=== PATIENT | female | born 1965 | race Caucasian/White ===

== ENCOUNTER 2016-12-16 16:52 | Inpatient (IN) | payer BC, MEDICARE ==
--- NOTE | ~2016-12-16 | PN ---
Unit #: [id number] #: [id number] Patient: CONNOR NELSON [id number] [facility] [address] [place] [address] [id number] MR#: [id number] NAME: CONNOR NELSON ROOM: [facility] Age: 51 Sex: F Admission Date: 12/16/2016 : 1965 Attending Physician: Fan Bueno M.D. Admitting Physician: Fan Bueno M.D. Primary Care Physician: Kings Diaz PROGRESS NOTES DATE 12/19/2016 DISCUSSION Ms. Yang is a 51-year-old female seen on 12/19/2016. The patient interviewed, chart reviewed. Obtained information from nursing staff. The patient compliant and cooperative. Mood sad, dysphoric, flat affect, guarded. The patient's vital signs stable 98.7, 95, 20, 139/92. The patient report her mood is getting better. Tolerating medication fairly well. Sleeping good, isolative. The patient denied any other complaints. Complete review of systems unremarkable. MENTAL STATUS EXAMINATION General appearance, the patient dressed casually. Attention span and concentration fair. Oriented to time, place and person. Mood and affect sad, depressed. Speech monotone. Thought process concrete. The patient denied any thoughts of harming self or others but passive SI, guarded. Recent and remote memory poor. Insight and judgement poor. DIAGNOSES Major depressive disorder recurrent severe. ASSESSMENT/PLAN Advise to continue with current medication with a plan to check lithium level on Tuesday. If needed consider further adjustment of medication. Dictated by... Kings Zamora/demetrio TD: 12/20/2016 13:32 JOB #: [id number] Unit #: [id number] #: [id number] Patient: CONNOR NELSON PROGRESS NOTES Page 1 of 1 X Fan Bueno MD PROGRESS NOTE
--- NOTE | ~2016-12-16 | A ---
[facility] DATE: 12/17/16 Patient: CONNOR NELSON Physician: LIDA Address: [address] [place] [address] Room/Bed: [address], Zip: [place] [address] Admit Date: 12/16/16 Date of : [birth year] Height: 5 0 Weight: [phone] NUTRITIONAL ASSESSMENT: REASON: Consult re: severe IBS/diverticulosis EGG ALLERGY Admitting Dx: 51 y/o female admitted with SI and depression PMH: No H&P currently available, information is obtained from the needs assessment and the patient herself: IBS, diverticulosis, dyspepsia, GERD, HTN, eating disorder/purging, asthma, thryoid issues, suicide attempts Anthropometrics: Ht: 60", Wt: 163 lbs, BMI: 31 (Stage I obese) Labs: Reviewed; WNL Meds: [place] carbonate, Mag-Al, Milk of Mg, Buspar Assessment: Chart reviewed, events noted. See admitting dx and PMH as stated above. RD consulted to address the patient's specific dietary needs, as she has severe IBS. She is Stage I obese, no past weights available for comparison and scored 0 points on the malnutrition risk screen, however per the needs assessment she has lost 30 lbs in 6 months and has a history of purging. She is currently on a regular diet however nursing states she follows a low FODMAP diet at home, which usually entails avoiding gluten, dairy products, and certain fruits/vegetables to help with IBS symptoms. Research generally supports this diet. RD spoke with the patient and obtained her specific dietary needs, which is reported below. Of note, she has an egg allergy. Nursing states she can have products with eggs in them, just can't have eggs by themselves. I informed nursing due ot this allergy she will not receive any egg products. Patient is requesting a dairy-free diet and the following modifications below. Dx: Altered GI function r/t PMH AEB severe IBS, dietary modifications, RD consult. Intervention: Dairy free diet Monitoring, Evaluation and Goals: 1. Adequate oral intake > 50% of meals. 2. Prevent/correct micro/macro nutrient deficiencies. 3. Promote regular GI function. Monitor: Per consult [facility] DATE: 12/17/16 Patient: CONNOR NELSON Physician: LIDA Address: [address] [place] [address] Room/Bed: [address], Zip: [place] [address] Admit Date: 12/16/16 Date of : [birth year] Height: 5 0 Weight: [phone] Recommendations: 1. RD wrote in chart to change diet order to no dairy, per patient request. She does not want any cow's milk substitutions such as lactose-free or soy milk. She can have the following fruits: Any EXCEPT apples, pears and peaches She can have the following vegetables: Any EXCEPT iceberg lettuce (please give spinach) and peas She can have any meats/protein EXCEPT hamburger meat She DOES eat wheat and can have any wheat products including regular bread, chips, etc. 2. SHE HAS AN EGG ALLERGY Food and nutrition services staff have been notified of the patient's dietary needs and have been added to her cardex. 3. Please consult dietitian or call [phone] ([phone] from inside [place]) with any further nutritional needs. Mild nutrition risk Respectfully, Annamarie Adan RD, [facility] cc: client file
--- NOTE | ~2016-12-16 | PN ---
Unit #: [id number] #: [id number] Patient: CELIA NELSON [id number] [facility] [address] [place] [address] [id number] I MR#: [id number] NAME: CELIA NELSON ROOM: [facility] Age: 51 Sex: F Admission Date: 12/16/2016 : 1965 Attending Physician: Fan Bueno M.D. Admitting Physician: Fan Bueno M.D. Primary Care Physician: Kings Diaz PROGRESS NOTES DATE OF SERVICE: 12/17/2016 DISCUSSION Ms. Celia Latif is a 51-year-old female, seen on 12/17/2016. The patient interviewed, chart reviewed, and obtained information from nursing staff. The patient compliant and cooperative. Mood is sad and dysphoric. Flat affect and guarded. The patient still having suicidal ideation. Flat, sad, and dysphoric mood. REVIEW OF SYSTEMS Complete review of systems unremarkable. MENTAL STATUS EXAMINATION General appearance, the patient dressed casually. Attention span and concentration, fair. Oriented in place and person. Mood and affect, sad and depressed. Speech, monotone. Thought process, concrete. Denied any homicidal ideation, but passive SI. Sad, depressed, and guarded. Recent and remote memory, poor. Insight and judgment, poor. DIAGNOSES Major depressive disorder, recurrent, severe. ASSESSMENT AND PLAN Advised to continue with current medication and therapeutic protocol. If needed, consider further adjustment of medication. Dictated by... Kings Zamora/duarte TD: 12/17/2016 16:13 JOB #: [id number] Unit #: [id number] #: [id number] Patient: CELIA NELSON PROGRESS NOTES Page 1 of 1 X Fan Bueno MD PROGRESS NOTE
--- NOTE | ~2016-12-16 | PA ---
Unit #: [id number] #: [id number] Patient: CONNOR NELSON [id number] [facility] [address] [place] [address] [id number] MR#: [id number] NAME: CONNOR NELSON ROOM: [facility] Age: 51 Sex: F Admission Date: 12/16/2016 : 1965 Date of Assessment: Attending Physician: Fan Bueno M.D. Admitting Physician: Fan Bueno M.D. Primary Care Physician: Shashank Hammond M.D. PSYCHIATRIC ASSESSMENT INFORMANTS The patient reliability, fair informant; chart reliability, good. CHIEF COMPLAINT Depression, suicidal ideation. HISTORY OF PRESENT ILLNESS Ms. Yang is a 51-year-old female, admitted with the above-mentioned complaint. The patient reports that she lives with her , has a good support system, feeling increasingly depressed. The patient reported suffering from depression since age 18, multiple admissions at [facility] and [facility]; history of previous suicide attempt, having suicidal ideation. The patient reports current medications are not working. The patient reports that for some time new medication worked for her. The patient has one son. The patient reports good support from family. The patient denied any psychotic symptom or any homicidal ideation. Denied any use of any drugs or alcohol. The patient has a history of overdose in the past, serious suicide attempt requiring ICU care for about 5 days. The patient denied any homicidal ideation. Needing inpatient admission at this time for psychiatric stabilization. PAST PSYCHIATRIC HISTORY Remarkable for history of previous treatment at inpatient at [facility] in 03/2012, multiple admissions at [facility] for suicidal ideation, inpatient at [facility]. FAMILY HISTORY AND SOCIAL HISTORY The patient has a good support system. No history of any abuse. Reported history of depression runs in the family. MEDICAL HISTORY Remarkable for history of hypertension, asthma, eating disorder, thyroid issues. MEDICATION HISTORY The patient is on Rexulti, Viibryd, Restoril, Singulair, Zestril, Mobic, Protonix, Claritin, Fetzima, Synthroid, Requip, Symbicort, BuSpar, Bells, Proventil inhaler, Lomotil, Valtrex. ALLERGIES No known drug allergies. SUBSTANCE ABUSE HISTORY Unit #: [id number] #: [id number] Patient: CONNOR NELSON None. REVIEW OF SYSTEMS HEENT: Eyes, clear. Ears, nose, mouth, and throat; clear. CARDIOVASCULAR: Unremarkable. RESPIRATORY: Unremarkable. GI: Unremarkable. : Unremarkable. SKIN: Unremarkable. LYMPH NODE: Unremarkable. NEUROLOGIC: Unremarkable. ENDOCRINE: Unremarkable. HEMATOLOGIC: Unremarkable. ALLERGIC/IMMUNOLOGIC: Unremarkable. MUSCULOSKELETAL: Muscle strength and tone, no atrophy or abnormal movement. Gait normal. MENTAL STATUS EXAMINATION CONSTITUTIONAL: Measurement of vital signs; temperature is 98.6, pulse 88, respiratory rate 19, blood pressure 139/97, height 5 feet, weight 163 pounds. GENERAL APPEARANCE: The patient dressed casually. The patient did not show any facial deformity. MUSCULOSKELETAL: Please see above. PSYCHIATRIC EXAMINATION Description of speech; regular rate, normal volume, normal articulation, coherent. Description of thought process, goal directed. Description of association, intact. Description of abnormal psychotic thinking; the patient denied any hallucination or delusions, but sad, depressed, suicidal ideation. Description of the patient's judgment, concerning everyday activity, poor. Social situation, poor. Concerning psychiatric condition, poor. Complete mental status examination; oriented in time, place, and person. Recent and remote memory, fair. Attention span and concentration, fair. Language, able to name object and repeat phrases. Fund of knowledge, aware of current event and passive vocabulary intact. Mood and affect, sad and dysphoric. Insight and judgment, fair to poor. ASSETS AND LIABILITIES Assets; the patient is articulate and able to take care of her ADL. Liability, history of depression. ADMITTING DIAGNOSES Psychiatric: Major depressive disorder, recurrent, severe, F33.2; anxiety disorder, not otherwise specified, F41.9. Secondary diagnosis: Deferred. Medical diagnosis: History of hypertension, asthma, eating disorder, thyroid issues. Stressors: Psychosocial stressors. PSYCHIATRIC PLAN 1. Advised to admit the patient on the inpatient unit. Provide safe, supportive, and structured environment. Unit #: [id number] #: [id number] Patient: CONNOR NELSON 2. Ordered labs; CBC, CMP, UA, and UDS. 3. Precaution for self-harm. 4. The patient to continue with current medication with a plan to discontinue the patient's antidepressant Rexulti, Viibryd, and Restoril and replace that with Cymbalta 30 mg daily, lithium carbonate 300 mg b.i.d., doxepin 50 mg at bedtime, and Ativan 0.5 mg t.i.d. Medical consultation to evaluate the patient's medical condition. The patient to attend all the programing group therapy, individual therapy, family session. TREATMENT GOAL To attain euthymic mood, gain insight into her problem, and learn coping skills. DISCHARGE PLAN Plan to stabilize the patient and consider followup in outpatient program. ESTIMATED LENGTH OF STAY 2 weeks. Dictated by... Kings Zmaora/duarte TD: 12/18/2016 00:07 JOB #: [id number] PSYCHIATRIC ASSESSMENT Page 1 of 1 X Fan Bueno MD X PSYCHIATRIC ASSESSMENT
--- NOTE | ~2016-12-16 | PN ---
Unit #: [id number] #: [id number] Patient: CONNOR NELSON [id number] [facility] [address] [place] [address] [id number] MR#: [id number] NAME: CONNOR NELSON ROOM: [facility] Age: 51 Sex: F Admission Date: 12/16/2016 : 1965 Attending Physician: Fan Bueno M.D. Admitting Physician: Fan Bueno M.D. Primary Care Physician: Kings Diaz PROGRESS NOTES DATE 12/20/2016 DISCUSSION Ms. Yang is a 51-year-old female seen on 12/20/2016. The patient interviewed, chart reviewed. Obtained information from nursing staff. The patient reported that she is feeling better decreased anxiety. Hygiene and grooming good, pleasant and cooperative, make good eye contact. Vital signs stable. Complete review of systems unremarkable. MENTAL STATUS EXAMINATION General appearance, the patient neatly. Hygiene and grooming fair. Attention span and concentration fair. Oriented to time, place and person. Mood and affect sad, dysphoric. Speech monotone. Thought process concrete. The patient denied any thoughts of harming self or others but guarded. Recent and remote memory fair to poor. Insight and judgement fair to poor. DIAGNOSES Major depressive disorder recurrent severe ASSESSMENT/PLAN Advise to continue with current medication with a plan to consider discharge this week. Plan to check lithium level tomorrow. Dictated by... Kings Zamora/demetrio TD: 12/21/2016 23:30 JOB #: [id number] Unit #: [id number] #: [id number] Patient: CONNOR NELSON PROGRESS NOTES Page 1 of 1 X Fan Bueno MD X PROGRESS NOTE
--- NOTE | ~2016-12-16 | PN ---
Unit #: [id number] #: [id number] Patient: CONNOR NELSON [id number] [facility] [address] [place] [address] [id number] MR#: [id number] NAME: CONNOR NELSON ROOM: [facility] Age: 51 Sex: F Admission Date: 12/16/2016 : 1965 Attending Physician: Fan Bueno M.D. Admitting Physician: Fan Bueno M.D. Primary Care Physician: Kings Diaz PROGRESS NOTES DATE OF SERVICE: 12/18/2016 DISCUSSION Ms. Yang is a 51-year-old female. The patient interviewed, chart reviewed, and obtained information from nursing staff. The patient compliant, cooperative. Mood is sad, dysphoric, flat affect. The patient reports medication is helping her, but still reporting feeling sad, depressed, slept good. Compliant with medication. REVIEW OF SYSTEMS Complete review of systems unremarkable. MENTAL STATUS EXAMINATION General appearance, the patient dressed casually. Attention span and concentration, fair. Oriented in place and person. Mood and affect, sad, depressed, flat, suicidal ideation. Recent and remote memory, poor. Insight and judgment, poor. DIAGNOSIS Major depressive disorder, recurrent. ASSESSMENT AND PLAN Advised to continue with current medication and therapeutic protocol. If needed, consider further adjustment of medication. Dictated by... Kings Zamora/duarte TD: 12/18/2016 13:52 JOB #: [id number] Unit #: [id number] #: [id number] Patient: CONNOR NELSON PROGRESS NOTES Page 1 of 1 X Fan Bueno MD PROGRESS NOTE
--- NOTE | ~2016-12-16 | HP ---
Unit #: [id number] #: [id number] Patient: CELIA NELSON [id number] [place] [address] [id number] MR#: [id number] NAME: CELIA NELSON ROOM: [facility] Age: 51 Sex: F Admission Date: 12/16/2016 : 1965 Attending Physician: Fan Bueno M.D. Admitting Physician: Fan Bueno M.D. Primary Care Physician: Shashank Hammond M.D. HISTORY AND PHYSICAL HISTORY OF PRESENT ILLNESS Celia is a 51 year old admitted to [facility] with depression verbalizing wanting to hurt herself. PAST MEDICAL HISTORY 1. History of histoplasmosis 2. High blood pressure 3. History of migraine headaches 4. Hypothyroidism 5. History of fever blisters 6. Asthma 7. Irritable bowel syndrome a. diarrhea PAST SURGICAL HISTORY 1. Cholecystectomy 2. D & C 3. Bilateral ganglion cyst resected ALLERGIES Gracie Jose. SOCIAL HISTORY She does not smoke, drinks alcohol socially. Denies illicit drug use. FAMILY HISTORY Medically noncontributory. REVIEW OF SYSTEMS CONSTITUTIONAL: No fever or chills. HEENT: Denies any sore throat, ear pain or runny nose. CARDIOVASCULAR: Denies chest pain, irregular heart rhythm or palpitations. CHEST: Denies shortness of breath or cough. No hemoptysis. GASTROINTESTINAL: Denies nausea, vomiting, diarrhea or chronic constipation. ENDOCRINE: Denies history of increased thirst or urination. No recent significant weight loss or gain. GENITOURINARY: Denies dysuria, frequency, or hematuria. SKIN: Denies any rashes. HEMATOLOGIC: Denies history of increased bleeding or bruising. MUSCULOSKELETAL: Denies any hot, swollen joints. No generalized muscle pain. Unit #: [id number] #: [id number] Patient: CELIA NELSON NEUROLOGIC: Denies problems with vision or speech. No frequent, severe headaches. No numbness, tingling or weakness in any extremities. Denies loss of bladder or bowel control. CURRENT MEDICATIONS 1. Singulair 10 mg q day 2. Zestril 10 mg q day 3. Mobic 15 mg q day 4. Protonix 40 mg q day 5. Claritin 10 mg q day 6. Fetzima 80 mg q day 7. Synthroid 0.025 mg q day 8. Ropinirole 1 mg q.h.s. 9. Doxepin 50 mg q.h.s. 10. Cymbalta 30 mg q.h.s. 11. Symbicort b.i.d. 12. BuSpar 10 mg b.i.d. 13. [place] 300 mg b.i.d. 14. Ativan 0.5 mg b.i.d. 15. [place] 10/325 1 tab q.6 hours p.r.n. 16. Levsin 0.125 mg q 4 hours p.r.n. 17. Protonix 40 mg q day 18. Proventil inhaler p.r.n. 19. Valtrex 2000 mg b.i.d. p.r.n. PHYSICAL EXAMINATION GENERAL: Alert, well-nourished, in no apparent distress. VITAL SIGNS: Blood pressure 140/96, heart rate 88, respirations 16, temperature 98.6. WEIGHT: 163 pounds. HEIGHT: 5'0". SKIN: Warm and dry without rash or lesion. HEENT: Normocephalic. TMs not viewed. Oral and nasal passages clear. Conjunctivae clear. Pupils equal, round and reactive to light and accommodation. Extraocular movements intact. NECK: Supple without lymphadenopathy or thyromegaly. HEART: Regular rate and rhythm without murmur. LUNGS: Clear. ABDOMEN: Soft, nontender. : Not done. EXTREMITIES: No evidence of cyanosis, clubbing or edema. Moves all extremities without focal deficit. NEUROLOGICAL: Grossly within normal limits. Cranial Nerves: II: Visual tapia are intact. III, IV AND : Extraocular movements are intact. Pupils are equal, round and reactive to light. V: Facial sensation is grossly normal. VII: Facial movements and expression are normal. VIII: Auditory acuity grossly intact. IX, X: Uvula is midline. Phonation is normal. XI: Patient shrugs shoulders and turns head normally. XII: Tongue protrudes in the midline. Sensory and Motor Function: Sensory and motor sensation is grossly normal. Motor: moves all extremities well. Coordination: Gait is normal. Deep Tendon Reflexes: Intact. IMPRESSION Psychiatric admission RECOMMENDATIONS Unit #: [id number] #: [id number] Patient: CELIA NELSON PSYCHIATRIC: Per psychiatrist. MEDICAL: I see no contraindications to participating in facility's activities. MEDICAL PROGNOSIS Good. MEDICAL CONDITION Stable. Dictated by... Celestina Ramey P.A.-C. for Kings Brunson/demetrio TD: 12/18/2016 06:42 JOB #: [id number] HISTORY AND PHYSICAL Page 1 of 1 X Celestina Ramey X HISTORY AND PHYSICAL
--- NOTE | ~2016-12-16 | DS ---
Unit #: [id number] #: [id number] Patient: CONNOR NELSON [id number] [facility] [address] [place] [address] [id number] MR#: [id number] NAME: CONNOR NELSON ROOM: [facility] Age: 51 Sex: F Admission Date: 12/16/2016 : 1965 Discharge Date: 12/21/2016 Attending Physician: Fan Bueno M.D. Primary Care Physician: Shashank Hammond M.D. DISCHARGE SUMMARY REASON FOR ADMISSION Depression, suicidal ideation. DIAGNOSTIC STUDIES LABORATORY RESULTS: Unremarkable. HOSPITAL COURSE The patient was admitted to inpatient unit on 12/16/2016 and discharged on 12/21/2016. The patient was treated on the inpatient unit with group therapy, individual therapy, medication management. The patient responded well with the above modalities of treatment and able to contract for safety. Subsequently, the patient was discharged with a plan to follow up in outpatient program. DISCHARGE MEDICATIONS Vistaril 25 mg t.i.d. for anxiety, Ativan was discontinued in the hospital, lithium carbonate 300 mg b.i.d. for mood stabilization, Cymbalta 60 mg daily for depression, Sinequan 50 mg at bedtime for sleep. The patient's lithium level came back 0.6, which was within normal range. I advised to recheck lithium level in a month to keep the level between 0.6 and 1.0. The patient to continue with the other medications Singulair 10 mg daily for allergies, Zestril 10 mg daily for hypertension, Mobic 15 mg daily for pain, Protonix 40 mg daily for GERD symptom, Fetzima 80 mg daily for pain, Synthroid 0.025 mg in the morning for hypothyroidism, Requip 1 mg at bedtime for restless legs, and Imitrex for migraine. DISCHARGE DIAGNOSES Psychiatric: Major depressive disorder, recurrent, severe, F33.2; anxiety disorder, not otherwise specified, F41.9. Secondary diagnosis: Deferred. Medical diagnosis: History of hypertension, asthma, eating disorder, thyroid disorder. Stressors: Psychosocial stressors. DISCHARGE INSTRUCTIONS The patient to follow up in outpatient clinic as per outreach and education social worker. CONDITION ON DISCHARGE The patient was pleasant and cooperative. Denied any psychotic symptom or any suicidal ideation. Unit #: [id number] #: [id number] Patient: CONNOR NELSON PROGNOSIS Guarded. DIET AND ACTIVITY As tolerated. Dictated by... Kings Zamora/duarte TD: 12/21/2016 23:10 JOB #: [id number] DISCHARGE SUMMARY Page 1 of 1 X Fan Bueno MD X DISCHARGE SUMMARY
[2016-12-17 09:53] LABS: BASOPHIL# 0.1 X10e3 (0-0.3); EOSINOPHIL# 0.6 X10e3 (0-0.7); EOSINOPHIL% 9.9 % (0.0-7.0); HEMATOCRIT 38.6 % (35.0-45.0); HEMOGLOBIN 12.4 gm/dL (12.0-16.0); LYMPHOCYTE# 1.4 X10e3 (1.0-3.5); LYMPHOCYTE% 21.8 % (17.0-45.0); MEAN CELL VOLUME 76.9 FL (83-96); MEAN CORPUSCULAR HEMOGLOBIN 24.7 PG (28-34); MEAN CORPUSCULAR HGB CONC 32.1 g/dL (30-36); MEAN PLATELET VOLUME 8.5 FL (6.5-11.5); MONOCYTE# 0.3 X10e3 (0-1.0); MONOCYTE% 5.1 % (3.0-12.0); NEUTROPHIL% 62.2 % (40-75); PLATELET COUNT 268 X10e3 (140-420); RED BLOOD COUNT 5.02 X10e (3.90-5.30); RED CELL DISTRIBUTION WIDTH 13.7 % (11.0-15.5); WHITE BLOOD COUNT 6.5 X10e3 (4.0-10.5)
[2016-12-17 09:54] LABS: DIFF IND NO
[2016-12-17 10:14] LABS: ALBUMIN SERUM 3.9 g/dL (3.5-5.0); BILIRUBIN,TOTAL 0.9 mg/dL (0.2-2.0); CALCIUM SERUM 9.2 mg/dL (8.4-10.2); CREATININE SERUM 0.7 mg/dL (0.6-1.4); GLOM FILT RATE Estimated 101.7 mL/min (>60); POTASSIUM 4.1 mmol/L (3.5-5.1); PROTEIN TOTAL SERUM 6.3 g/dL (6.0-8.3)
[2016-12-17 10:20] LABS: THYROID STIMULATING HORMONE 2.39 uIU/ml (0.34-5.60)
[2016-12-17 10:27] LABS: FREE THYROXIN (T4) 0.66 ng/dL (0.58-1.64)
[2016-12-21 10:30] LABS: ALBUMIN SERUM 4.6 g/dL (3.5-5.0); BILIRUBIN,TOTAL 1.1 mg/dL (0.2-2.0); BUN/CREATININE RATIO 14.44; CREATININE SERUM 0.9 mg/dL (0.6-1.4); GLOM FILT RATE Estimated 75.1 mL/min (>60); POTASSIUM 4.3 mmol/L (3.5-5.1); PROTEIN TOTAL SERUM 7.3 g/dL (6.0-8.3)
== END 2016-12-21 16:20 | disposition home or self-care (01) | DRG 885 ==
LOC: P2L 19:09 → POF 12-17 17:29 → P2L 12-17 17:31
PROVIDERS: Psychiatry & Neurology Psychiatry
DX: F33.2 Major depressive disorder, recurrent severe without psychotic features (principal); F50.9 Eating disorder, unspecified; R45.851 Suicidal ideations; F41.9 Anxiety disorder, unspecified; I10 Essential (primary) hypertension; J45.909 Unspecified asthma, uncomplicated
CPT/HCPCS: 80053; 80178; 84439; 84443; 84703; 85025